=== PATIENT | male | born 1955 | race Caucasian/White ===

== ENCOUNTER → 2017-04-07 | Outpatient (CLI) | payer OTHER ==
[~2017-04-07] MED LIST: ACET500 PO; ALBU90OI; CYAN1000 PO; CYAN500 PO; DOCU100 PO; DRON2.5 PO; FIBE4P PO; Ferrousul325 MG; GABA300 PO; HYDMOR2 PO; LAVAP17G PO; LEVO750 PO; MAGOXI400; MAGOXI400 PO; METO10SY PO; METO25ER PO; METO5A PO; MIRT15 PO; OMEP20ER PO; ONDA4ODT MM; OXYC10ER PO; OXYC10TA19 PO; OXYC5 PO; PANT40 PO; RXHYDMOR2 PO; Roxicodone5 MG PO; SENN187 PO; SERT25 PO; TRAMADOL HCL E100 M2; VITAMIN B-121000 MCG; WARF2 PO; XARELTO10 MG
[2017-04-07 16:17] LABS: Source, Urine Clean Catch
[2017-04-07 18:18] LABS: Bilirubin, Urine Neg (Neg); Blood, Urine Neg (Neg); Glucose Qualitative, Urine 1+ (Neg); Ketones, Urine Neg (Neg); Leukocyte Esterase, Urine 1+ (Neg); Nitrite, Urine Neg (Neg); Protein, Urine Neg (Neg); Urobilinogen, Urine NORM (Normal)
[2017-04-07 18:30] LABS: Appearance, Urine Clear (Clear); Bacteria Few /hpf; Color, Urine Yellow (P-Yellow); Red Blood Cells, Urine 0-2 /hpf (0-2); Squamous Epithelial Cells Not Seen /hpf (Few)
== END | disposition home or self-care (01) ==
LOC: LAB 16:16
PROVIDERS: Internal Medicine
DX: R35.1 Nocturia (principal)
CPT/HCPCS: 81001; 87086

== ENCOUNTER → 2017-12-05 | Outpatient (CLI) | payer OTHER ==
[~2017-12-05] MED LIST changes: -ALBU90OI; -Ferrousul325 MG; -MAGOXI400; -TRAMADOL HCL E100 M2; -VITAMIN B-121000 MCG; -XARELTO10 MG
== END | disposition home or self-care (01) ==
LOC: LAB 08:15 → LAB SHORT 08:15
PROVIDERS: Internal Medicine
DX: R10.11 Right upper quadrant pain (principal); R19.7 Diarrhea, unspecified
CPT/HCPCS: 87015; 87045; 87046; 87177; 87205; 87209; 87328; 87329; 87493; 87899

== ENCOUNTER 2018-08-24 10:27 | Day surgery (SDC) | payer OTHER ==
[~2018-08-24] VITALS: Ht 175.3 cm; Wt 64.6 kg
[~2018-08-24 10:27] MED LIST changes: +ALBU90OI INH; +Ferrous Sulfat325 M2 PO; +Ferrousul325 MG; +MAGOXI400; +SERT50 PO; +TAMS.4ER PO; +TRAMADOL HCL E100 M2; +TRAZ100 PO; +VITAMIN B-121000 MCG; +XARELTO10 MG
[2018-08-24] MEDS ORDERED: XARELTO20 MG (11:24)
--- NOTE | 2018-08-24 14:56 | NUR ---
08/24/18 1456 Asmita Stanley LATE ENTRY---PRE OP BLOOD PRESSURE VERY LOW (SEE PRINTOUT). PATIENT WAS DIZZY WITH GETTING UP FROM CHAIR AND WALKING BACK WITH PRE OP PERSON. DR MELLO WAS CONSULTED AND SHE ORDERED FLUID BOLUS OF 500CC OF LR. THIS WAS DONE AND PATIENT EXPRESSED HE FELT BETTER. BP STILL LOW (SEE PRINTOUT) DR MELLO WAS ADVISED SHE WENT DOWN TALKED WITH PATIENT, ORDER ORTHOSTATIC VITALS. THIS WAS DONE AND THERE WAS NO CHANGE WITH POSITION CHANGES. GAVE OK TO GO AHEAD WITH SEDATION FOR COLONOSCOPY. SHE ORDERED TO KEEP FLUIDS WIDE OPEN AND START ANOTHER LITER OF LR WHEN FIRST ONE WAS FINISHED. DR BUSTILLO ADVISED AND AGREES
--- NOTE | 2018-08-24 14:58 | NUR ---
08/24/18 1458 Asmita Stanley LATE ENTRY----PATIENT STABLE AFTER PROCEDURE. BP FINALLY STAYING OVER 100 SYSTOLIC. PATIENT ABLE TO DRESS AND WHEN WALKING TO THE BATHROOM HE STATED HE STILL FELT JUST A LITTLE OFF BALANCE BUT TELLS ME IT WAS MUCH BETTER THAN BEFORE HIS PROCEDURE. PATIENT WALKED TO CAR AND WAS ABLE TO GET INTO CAR WITH NO PROBLEMS. PATIENT WAS DISCHARGED IN STABLE CONDITION
== END 2018-08-24 12:55 | disposition home or self-care (01) ==
LOC: ORSCSDS 10:27
PROVIDERS: Internal Medicine Gastroenterology
PROC: 0DBK8ZX Excision of Ascending Colon, Via Natural or Artificial Opening Endoscopic, Diagnostic (ICD-10-PCS; principal; 2018-08-24 11:45)
PROC: 0DBL8ZX Excision of Transverse Colon, Via Natural or Artificial Opening Endoscopic, Diagnostic (ICD-10-PCS; principal; 2018-08-24 11:45)
DX: Z86.010 Personal history of colon polyps (principal); D12.2 Benign neoplasm of ascending colon; D12.3 Benign neoplasm of transverse colon; K57.30 Diverticulosis of large intestine without perforation or abscess without bleeding; K64.8 Other hemorrhoids; Z85.01 Personal history of malignant neoplasm of esophagus; K21.9 Gastro-esophageal reflux disease without esophagitis; F17.210 Nicotine dependence, cigarettes, uncomplicated; Z79.899 Other long term (current) drug therapy
CPT/HCPCS: 88305; J2250; J2704; J7120

== ENCOUNTER 2020-07-04 13:19 | Day surgery (SDC) | payer OTHER ==
[~2020-07-04] VITALS: Ht 175.3 cm; Wt 48.8 kg
== END 2020-07-04 17:15 | disposition home or self-care (01) ==
LOC: ORSCSDS 13:19
PROC: 0DHA4UZ Insertion of Feeding Device into Jejunum, Percutaneous Endoscopic Approach (ICD-10-PCS; principal; 2020-07-04)
DX: R62.7 Adult failure to thrive (principal); Z85.01 Personal history of malignant neoplasm of esophagus; J44.9 Chronic obstructive pulmonary disease, unspecified; E78.5 Hyperlipidemia, unspecified; R73.9 Hyperglycemia, unspecified; Z79.899 Other long term (current) drug therapy; F17.210 Nicotine dependence, cigarettes, uncomplicated; Z79.01 Long term (current) use of anticoagulants
CPT/HCPCS: C1729; J0690; J2001; J2370; J2405; J2704; J3010

== ENCOUNTER 2020-07-12 16:09 | Inpatient (IN) | payer OTHER ==
[~2020-07-12] VITALS: Ht 175.3 cm; Wt 47.3 kg
[~2020-07-12 16:09] MED LIST changes: -CYAN1000 PO; +MIRT15 PT; +Vitamin B-121000 MCG PT; +XARELTO20 MG PT
[2020-07-12 16:42] LABS: BASOPHILS ABSOLUTE AUTO 0.02 K/mm3 (0.00-0.23); BASOPHILS PERCENT AUTO 0 % (0-2); EOSINOPHILS ABSOLUTE AUTO 0.09 K/mm3 (0.00-0.68); EOSINOPHILS PERCENT AUTO 1 % (0-6); Hematocrit 37.8 % (37.0-53.0); Hemoglobin 13.4 g/dL (13.5-17.5); IMMATURE GRAN ABSOLUTE AUTO 0.06 K/mm3 (0.00-0.10); IMMATURE GRAN PERCENT AUTO 1 % (0-1); LYMPHOCYTES ABSOLUTE AUTO 0.81 K/mm3 (0.84-5.20); LYMPHOCYTES PERCENT AUTO 7 % (21-46); MONOCYTES ABSOLUTE AUTO 0.97 K/mm3 (0.16-1.47); MONOCYTES PERCENT AUTO 9 % (4-13); Mean Corpuscular HGB 35.7 pg (26.0-34.0); Mean Corpuscular HGB Conc 35.4 g/dL (31.5-36.5); Mean Corpuscular Volume 101 fL (80-100); Mean Platelet Volume 10.6 fL (9.1-12.4); NEUTROPHILS ABSOLUTE AUTO 9.27 K/mm3 (1.96-9.15); NEUTROPHILS PERCENT AUTO 83 % (41-73); Platelet Count 222 K/mm3 (150-400); RDW Coefficient Variation 11.6 % (11.7-14.2); RDW Standard Deviation 42.4 fL (35.1-46.3); Red Blood Cell Count 3.75 M/mm3 (4.30-5.90); White Blood Cell Count 11.22 K/mm3 (4.00-11.30)
[2020-07-12 17:00] LABS: Alanine Aminotransfer (ALT/SGP 11 U/L (12-78); Albumin, Blood 1.9 g/dL (3.4-5.0); Albumin/Globulin Ratio 0.4 (0.8-1.8); Alk Phos 131 U/L (50-136); Anion Gap 7 mmol/L (6-16); Aspartate Aminotrans (AST/SGOT 17 U/L (12-37); Bilirubin, Total 0.7 mg/dL (0.1-1.0); Blood Urea Nitrogen 16 mg/dL (8-24); Bun/Creatinine Ratio 35.6 (12.0-20.0); CO2, Blood 25 mmol/L (21-32); Calcium, Blood 8.4 mg/dL (8.5-10.1); Chloride, Blood 104 mmol/L (98-108); Creatinine, Blood 0.45 mg/dL (0.60-1.20); Globulin, Blood 4.8 g/dL (2.2-4.0); Glomerular Filtration Rate >60 (60-); Glucose, Blood 120 mg/dL (70-99); Potassium, Blood 3.8 mmol/L (3.5-5.5); Sodium, Blood 136 mmol/L (136-145); Total Protein, Blood 6.7 g/dL (6.4-8.2); Troponin I <0.015 ng/mL (0.000-0.040)
[2020-07-12 17:31] LABS: Influenza A, PCR NEGATIVE (NEGATIVE); Influenza B, PCR NEGATIVE (NEGATIVE); Resp Syncytial Virus, PCR NEGATIVE (NEGATIVE); SARS-Cov-2 (COVID-19) PCR, MMC NEGATIVE (NEGATIVE)
[2020-07-12] MEDS ORDERED: ASCO500 PT (18:32)
[2020-07-12] MEDS ORDERED: VITAMIN D5000 UNIT PT (18:33)
[2020-07-12] MEDS ORDERED: ALFU10 PT (18:35)
[2020-07-12] MEDS ORDERED: FERROUS SULFAT325 M3 PT (18:36)
[2020-07-12] MEDS ORDERED: ZOLP10 PT (18:37)
[2020-07-12] MEDS ORDERED: Seroquel Xr50 MG PO (18:37)
[2020-07-12] MEDS ORDERED: PROM25 PO (18:38)
[2020-07-12] MEDS ORDERED: Percocet 5-3251 EACH PO (18:38)
[2020-07-12] MEDS ORDERED: HYDR1TAB94 PO (18:38)
[2020-07-12] MEDS ORDERED: QUETIAPINE FUMA50 M5 PT (18:45)
[2020-07-12] MEDS ORDERED: SERT100 PT (18:45)
--- NOTE | 2020-07-13 06:29 | NUR ---
shift summary pt rested well thorugh night. alert and oriented, able to make needs known. cooperative with plan of care. thoravent in place on l chest wall. sats >90% on 5lnc via oxymizer. tele nsr. no skin issues. minimal pain, just soreness from thoravent placement. jtube site c/d/i. npo. repeat cxr - pending. will need tube feedings per . vss. call light wtihin reach, bed in lowest posiion. will continue to monitor.
--- NOTE | 2020-07-13 19:30 | NUR ---
SHIFT SUMMARY PATIENT IS ALERT AND ORIENTED, COOPERATIVE WITH CARE. VSS, PATIENT TITRATED DOWN TO 3.5 L O2 VIA NASAL CANNULA MAINTAINING O2 SATS IN LOW 90S. PATIENT COMPLAINS OF L CHEST WALL PAIN WITH INSPIRATION AND L BACK PAIN. PAIN MEDICATIONS ADMINISTERED PER EMAR, PATIENT ASSISTED WITH REPOSITIONING T/O SHIFT. DR. SUERO SAW PATIENT AT BEDSIDE AND EVALUATED STATUS OF THORA-VENT, SEAL IS PATENT AND DR. SUERO STATED FLUID PRESENT IN THORA-VENT WAS ACCEPTABLE. PLAN IS FOR THORA-VENT REMOVAL TOMORROW. TUBE FEED STARTED THIS SHIFT PER ORDERS, NO RESIDUAL NOTED. PATIENT RESTING WITH HOB AT 45+ DEGREE ANGLE. WAS ABLE TO STAND MOMENTARILY WHEN WORKING WITH PHYSICAL THERAPY TODAY, OTHERWISE RESTING IN BED. J-TUBE IN PLACE, SKIN CARE PROVIDED AROUND J-TUBE SITE, DRESSING PLACED FOR SKIN PROTECTION. PATIENT INSTRUCTED IN USE OF FLUTTER VALVE BY THIS RN, PATIENT OBSERVED USING T/O SHIFT. SPEECH THERAPY TO EVALUATE TOMORROW.
--- NOTE | 2020-07-13 22:22 | NUR ---
ASSUMED CARE OF PATIENT AT APPROXIMATELY 1905 FROM FORTION Gambino RN. PATIENT ALERT AND ORIENTED X4; SLOW TO RESPOND AT TIMES. PATIENT WEAK; ASSISTS WITH TURNS IN BED; USES URINAL IN BED. PATIENT REPORTS BACK PAIN FROM BED; REPOSISTIONED; K-PAD GIVEN. AFIB ON TELE; OXYGEN SATURATION ABOVE 90% ON 2LPM VIA NC. PATIENT HAS TUBE FEEDING TO G-TUBE AT 25ML/HR. THORAVENT IN PLACE TO LEFT CHEST WITH FLUID PRESENT. PATIENT NPO UNTIL ST SEES PATIENT IN AM; ORAL CARE PROVIDED. PIV X2 S/L. PATIENT CURRENTLY RESTING IN BED; CALL LIGHT IN REACH; BED IN LOWEST POSISTION; BED ALARM ON
[2020-07-14 04:47] LABS: BASOPHILS ABSOLUTE AUTO 0.02 K/mm3 (0.00-0.23); BASOPHILS PERCENT AUTO 0 % (0-2); EOSINOPHILS ABSOLUTE AUTO 0.23 K/mm3 (0.00-0.68); EOSINOPHILS PERCENT AUTO 2 % (0-6); Hematocrit 31.4 % (37.0-53.0); Hemoglobin 10.9 g/dL (13.5-17.5); IMMATURE GRAN ABSOLUTE AUTO 0.07 K/mm3 (0.00-0.10); IMMATURE GRAN PERCENT AUTO 1 % (0-1); LYMPHOCYTES ABSOLUTE AUTO 0.44 K/mm3 (0.84-5.20); LYMPHOCYTES PERCENT AUTO 4 % (21-46); MONOCYTES ABSOLUTE AUTO 0.92 K/mm3 (0.16-1.47); MONOCYTES PERCENT AUTO 7 % (4-13); Mean Corpuscular HGB 35.3 pg (26.0-34.0); Mean Corpuscular HGB Conc 34.7 g/dL (31.5-36.5); Mean Corpuscular Volume 102 fL (80-100); Mean Platelet Volume 10.6 fL (9.1-12.4); NEUTROPHILS ABSOLUTE AUTO 10.76 K/mm3 (1.96-9.15); NEUTROPHILS PERCENT AUTO 87 % (41-73); Platelet Count 206 K/mm3 (150-400); RDW Coefficient Variation 11.7 % (11.7-14.2); RDW Standard Deviation 43.8 fL (35.1-46.3); Red Blood Cell Count 3.09 M/mm3 (4.30-5.90); White Blood Cell Count 12.44 K/mm3 (4.00-11.30)
[2020-07-14 05:05] LABS: Alanine Aminotransfer (ALT/SGP 9 U/L (12-78); Albumin, Blood 1.6 g/dL (3.4-5.0); Albumin/Globulin Ratio 0.4 (0.8-1.8); Alk Phos 103 U/L (50-136); Anion Gap 6 mmol/L (6-16); Aspartate Aminotrans (AST/SGOT 10 U/L (12-37); Bilirubin, Total 0.5 mg/dL (0.1-1.0); Blood Urea Nitrogen 11 mg/dL (8-24); Bun/Creatinine Ratio 23.6 (12.0-20.0); CO2, Blood 26 mmol/L (21-32); Calcium, Blood 7.7 mg/dL (8.5-10.1); Chloride, Blood 105 mmol/L (98-108); Creatinine, Blood 0.47 mg/dL (0.60-1.20); Glomerular Filtration Rate >60 (60-); Glucose, Blood 130 mg/dL (70-99); Magnesium, Blood 1.9 mg/dL (1.6-2.4); Phosphorus, Blood 2.9 mg/dL (2.5-4.9); Potassium, Blood 3.2 mmol/L (3.5-5.5); Sodium, Blood 137 mmol/L (136-145); Total Protein, Blood 5.6 g/dL (6.4-8.2)
--- NOTE | 2020-07-14 06:45 | NUR ---
PATIENT SLEPT ABOUT SEVEN HOURS LAST NIGHT; PAIN IN BED; K-PAD, PAIN MEDS AND EGG CRATE FOAM TO BED. VSS. NO OTHER ACUTE CHANGES TO REPORT; TF TO 35ML/HR.
--- NOTE | 2020-07-14 18:19 | NUR ---
SHIFT SUMMARY NO ACUTE EVENTS THIS SHIFT, VSS. ALERT AND ORIENTED, COOPERATIVE WITH CARE. PATIENT MAINTAINING O2 SATS IN 90S AND TITRATED DOWN TO 1.5 L VIA NASAL CANNULA AND TOLERATING WELL. PATIENT COMPLAINED OF L CHEST/BACK PAIN, MORPHINE GIVEN ONCE THIS SHIFT PER EMAR. PATIENT STATED THAT HIS CHEST PAIN IS DECREASED OVERALL BETWEEN YESTERDAY AND TODAY. PATIENT CONTINUES TO HAVE PRODUCTIVE COUGH, USING FLUTTER VALVE THIS SHIFT. TUBE FEEDS INCREASED AND NOW RUNNING AT GOAL RATE OF 40 ML/HR WITH FLUSH OF [address] SUERO CAME TO BEDSIDE AND REMOVED THORAVENT, DRESSING IN PLACE.
--- NOTE | 2020-07-14 21:24 | NUR ---
ASSUMED CARE OF PATIENT AT APPROXIMATELY 1905 FROM FORTINO Gambino RN. PATIENT ALERT AND ORIENTED X4; SLOW TO RESPOND AT TIMES. PATIENT WEAK; ASSISTS WITH TURNS IN BED; USES URINAL IN BED. PATIENT REPORTS BACK PAIN FROM BED; REPOSISTIONED; K-PAD GIVEN; MEDICATED PER EMAR. SR ON TELE; OXYGEN SATURATION ABOVE 90% ON 1.5LPM VIA NC. PATIENT HAS TUBE FEEDING TO G-TUBE AT 40ML/HR. NPO; Q4 ORAL CARE WITH SUCTION SWABS. PIV X2 S/L. PATIENT CURRENTLY RESTING IN BED; CALL LIGHT IN REACH; BED IN LOWEST POSISTION; BED ALARM ON
[2020-07-15 05:18] LABS: Hematocrit 31.4 % (37.0-53.0); Hemoglobin 10.8 g/dL (13.5-17.5); Mean Corpuscular HGB 34.8 pg (26.0-34.0); Mean Corpuscular HGB Conc 34.4 g/dL (31.5-36.5); Mean Corpuscular Volume 101 fL (80-100); Mean Platelet Volume 11.2 fL (9.1-12.4); Platelet Count 217 K/mm3 (150-400); RDW Coefficient Variation 11.7 % (11.7-14.2); RDW Standard Deviation 43.7 fL (35.1-46.3); White Blood Cell Count 10.12 K/mm3 (4.00-11.30)
--- NOTE | 2020-07-15 05:23 | NUR ---
CODE SKAGGS; AT APPROXIMATELY 0515 LAB CALLED DISTRIBUTION DISPATCHER TO HELP WITH LAB DRAW; PATIENT SWINGING AT LAB AND RESISTING LAB DRAW. PATIENT PINCHED STAFF THEN JUMPED OUT OF BED HEAD FIRST "I GOTTA PEE" AND GRABBED CHARGE NURSE CHEST. PATIENT STARTED URINATING INTO TRASHCAN AND ALL OVER FLOOR; PALE AND REFUSING OXYGEN STILL; SWATTING WHEN STAFF ATTEMPTED TO PLACE NASAL CANNULA. SECURITY AND NURSING MONITOR TECHNICIAN RESPONDED. DR. REED CALLED; ORDERS RECIEVED.
[2020-07-15 06:02] LABS: Albumin, Blood 1.6 g/dL (3.4-5.0); Anion Gap 2 mmol/L (6-16); Blood Urea Nitrogen 10 mg/dL (8-24); Bun/Creatinine Ratio 22.8 (12.0-20.0); CO2, Blood 29 mmol/L (21-32); Calcium, Blood 7.7 mg/dL (8.5-10.1); Chloride, Blood 106 mmol/L (98-108); Creatinine, Blood 0.44 mg/dL (0.60-1.20); Glomerular Filtration Rate >60 (60-); Glucose, Blood 135 mg/dL (70-99); Magnesium, Blood 1.9 mg/dL (1.6-2.4); Phosphorus, Blood 2.4 mg/dL (2.5-4.9); Potassium, Blood 3.5 mmol/L (3.5-5.5); Sodium, Blood 137 mmol/L (136-145); Vancomycin, Trough 8.1 ug/mL (5.0-10.0)
--- NOTE | 2020-07-15 06:30 | NUR ---
PATIENT SLEPT ABOUT EIGHT HOURS LAST NIGHT; BACK PAIN WOKE PATIENT AT TIMES. VSS. PATIENT REPORTS LAST NIGHT THAT HE IS NOT READY TO GO HOME.
--- NOTE | 2020-07-15 11:54 | NUR ---
TRANSFER TO MEDICAL FLOOR PT WAS TRANSFERRED TO MEDICAL FLOOR. REPORT GIVEN TO LISA CATHERINE. PT WAS TRANSFERRED OFF OF PCU AT APPROXIMATELY 1145. PT WAS ON TELE UPON TRANSFER, 1.5L OF O2, IV RUNNING WITH KVO AND ZOSYN AND J-TUBE FEEDING RUNNING AT 40. PT SPOKE WITH ELECTRICAL REPAIRER THIS MORNING AND THE PLAN IS TO FINISH THE CURRENT FEEDING THEN STOP FEEDINGS UNTIL THE EVENING AND RUN CONTINUOUSLY THROUGH THE NIGHT. PT WAS TRANSFERRED IN THE BED ACCOMPANIED BY BOUBACAR AND LISA ROY. PT WAS TAKEN WITH ALL PERSONAL BELONGINGS.
--- NOTE | 2020-07-15 17:22 | NUR ---
SHIFT SUMMARY PATIENT TRANSFERED FROM PCU AROUND LUNCH TIME. PATIENT REMAINS ON TUBE FEEDING, STRICT NPO. PATIENT ALERT AND ORIENTED THIS SHIFT. PATIENT USES URINAL APPROPRIATELY. TUBE FEEDING STOPPED THROUGH THE AFTERNOON, ORDERS TO START AT 1800 TO RUN THROUGH 0600. PATIENT MEDICATED 1X THIS SHIFT FOR PAIN. PATIENT'S SPOUSE IN THE ROOM VISITING THIS AFTERNOON. PATIENT CURRENTLY SITTING UP IN BED WATCHING TELEVISION, SPOUSE AT BEDSIDE.
--- NOTE | 2020-07-15 20:51 | NUR ---
PATIENT EXTREMELY NAUSEATED WHEN THIS RN ENTERED THE ROOM WITH HS MEDS AND IV MORPHINE. HE HAD HIS LEGS PARTIALLY OVER THE LEFT SIDE OF THE BED AND WAS DOWN IN THE BED TO ABOUT 10%. FEET PLACED BACK IN BED AND ENGINEERING SUPPLIES SALES ASSISTED TO BRING PATIENT BACK UP IN BED AND ELEVATE HIM BACK TO 30%. TUBE FEED TEMPORARILY STOPPED AND ZOFRAN 4MG IV GIVEN FOR RELIEF. WILL HOLD HS MEDS FOR 20-30 MINUTES UNTIL PATIENT NO LONGER DRY HEAVING. IN ADDITION, PATIENT WAS SCRATCHING AT J TUBE SITE, AND AT THIS TIME, DRESSING IS NOW SATURATED WITH SERROUS FLUID. PATIENT IS EXTREMELY ANXIOUS AND UNABLE TO CALM DOWN. WILL CONTACT HOSPITALIST WITH UPDATE.
[2020-07-16 04:38] LABS: BASOPHILS ABSOLUTE AUTO 0.03 K/mm3 (0.00-0.23); BASOPHILS PERCENT AUTO 0 % (0-2); EOSINOPHILS ABSOLUTE AUTO 0.13 K/mm3 (0.00-0.68); EOSINOPHILS PERCENT AUTO 1 % (0-6); Hematocrit 30.8 % (37.0-53.0); Hemoglobin 10.5 g/dL (13.5-17.5); IMMATURE GRAN ABSOLUTE AUTO 0.06 K/mm3 (0.00-0.10); IMMATURE GRAN PERCENT AUTO 1 % (0-1); LYMPHOCYTES ABSOLUTE AUTO 0.59 K/mm3 (0.84-5.20); LYMPHOCYTES PERCENT AUTO 5 % (21-46); MONOCYTES ABSOLUTE AUTO 0.83 K/mm3 (0.16-1.47); MONOCYTES PERCENT AUTO 7 % (4-13); Mean Corpuscular HGB 34.8 pg (26.0-34.0); Mean Corpuscular HGB Conc 34.1 g/dL (31.5-36.5); Mean Corpuscular Volume 102 fL (80-100); NEUTROPHILS ABSOLUTE AUTO 9.82 K/mm3 (1.96-9.15); NEUTROPHILS PERCENT AUTO 86 % (41-73); Platelet Count 248 K/mm3 (150-400); RDW Coefficient Variation 11.6 % (11.7-14.2); RDW Standard Deviation 43.7 fL (35.1-46.3); Red Blood Cell Count 3.02 M/mm3 (4.30-5.90); White Blood Cell Count 11.46 K/mm3 (4.00-11.30)
[2020-07-16 04:58] LABS: Anion Gap 2 mmol/L (6-16); Blood Urea Nitrogen 14 mg/dL (8-24); Bun/Creatinine Ratio 26.8 (12.0-20.0); CO2, Blood 27 mmol/L (21-32); Calcium, Blood 7.7 mg/dL (8.5-10.1); Chloride, Blood 106 mmol/L (98-108); Creatinine, Blood 0.52 mg/dL (0.60-1.20); Glomerular Filtration Rate >60 (60-); Glucose, Blood 137 mg/dL (70-99); Phosphorus, Blood 2.2 mg/dL (2.5-4.9); Potassium, Blood 4.1 mmol/L (3.5-5.5); Sodium, Blood 135 mmol/L (136-145)
--- NOTE | 2020-07-16 06:45 | NUR ---
ALDEN HAD NO FURTHER NAUSEA OR EXTREME ANXIETY ISSUES AFTER RECEIVING THE SINGLE DOSE OF IV ATIVAN. AFTER PATIENT WAS ABLE TO RELAX AND WAS ABLE TO REMAIN STILL, J TUBE DRESSING WAS CHANGED TWO GAUZE SPONGES WERE SATURATED WITH WHAT APPEARED TO BE A COMBINATION OF BILE AND TUBE FEED. NO RESIDUALS NOTED OVERNIGHT. PATIENT TOLERATED TUBE FEED AT 80ML/HR WITHOUT DIFFICULTY AFTER EPISODE IN THE EARLY EVENING. FREQUENT CHECKS TO ASSESS FOR REPOSITIONING NEED RECOMMENDED. ROBERT COLE HAS ASKED THAT THE HOSPITALIST ROUNDING ON HIM PLEASE CALL HER OUR VISITING HOURS MAKE IT EXTREMELY DIFFICULT FOR FAMILY TO STAY INFORMED THEIR STATUS.HER NUMBER IS: [phone]
[2020-07-16] MEDS ORDERED: ALBU90OI INH (09:25)
[2020-07-16] MEDS ORDERED: Cardura1 MG PT (09:26)
[2020-07-16] MEDS ORDERED: Norco 5-325 Ta1 EACH PT (09:30)
[2020-07-16] MEDS ORDERED: LEVO750 PT (09:31)
[2020-07-16] MEDS ORDERED: ONDA4ODT SL (09:31)
[2020-07-16] MEDS ORDERED: PROBIOTIC PT (09:37)
[2020-07-16] MEDS ORDERED: CRAN PT (09:37)
[2020-07-16] MEDS ORDERED: VITC PT (09:37)
[2020-07-16] MEDS ORDERED: K-Phos Origina500 MG PT (09:39)
--- NOTE | 2020-07-16 16:14 | NUR ---
Spiritual care visit conducted. Patient is sittig up in bed and alert. 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 Patient talks about his [employer] and how [facility] from [facility] prayed for him on the phone. Amira, patient's spouse is present during my visit. They explain about how the weight of the medical issues are pulling at them but the y are trying to stay positive. I normalize their experience and provide therapeutic listening. I will continue to remain available to patient and family.
--- NOTE | 2020-07-16 18:08 | NUR ---
SHIFT SUMMARY PATIENT ALERT AND ORIENTED THIS SHIFT. PATIENT REMAINS WEAK, UP 1X TO THE BEDSIDE COMODE. PATIENT REMAINS IN BED OTHERWISE. PATIENT REMAINS NPO, RECEIVING MEDICATIONS VIA IV AND J-TUBE. PATIENT SITTING UP IN BED THIS AFTERNOON, STATES FEELING BETTER TODAY THAN YESTERDAY. PATIENT'S IN THE ROOM THIS AFTERNOON. PATIENT RECEIVING CONTINUOUS TUBE FEEDING. PATIENT MEDICATED 1X FOR PAIN THIS AFTERNOON WITH NORCO PER EMAR. PATIENT STATES PAIN LEVEL IS ACCEPTABLE AFTER ADMINISTRATION. PATIENT CURRENTLY SITTING UP IN BED TALKING ON THE TELEPHONE.
--- NOTE | 2020-07-16 18:15 | NUR ---
Met with pt this evening to discuss his current hospitalization. He is pleasantly forgetful. His memory is fair/poor. He has lost a significant amount of weight over the past few months. He states this is because he had a new set of dentures that didn't fit correctly, and then he just lost his appetite altogether. This is the 2nd time this has happened since he has been in remission from his cancer. He came into the hospital because he was still losing weight and feeling sick to his stomach. So a j tub was placed again to see if pt can gain weight. So far, he hasn't been able to tolerate his tube feeding higher than 40/hour, but pt is in remission from cancer at this time. Depending on how the visit goes tomoroow, may discuss code status.
--- NOTE | 2020-07-17 04:55 | NUR ---
HAT AND CAP PARTS CUTTER HAND SUMMARY PT AAOX4 AND PLEASANT. HAS BEEN USING URINAL IN BED. CONTINUOUS TUBE FEEDING RATE INCREASED TO GOAL RATE OF 40 ML/HR FROM 30 ML/HR IN 5 ML INCREMENTS EVERY 2 HOURS. PT DENIES ANY BLOATING, NAUSEA, OR FEELING FULL. PT STILL WEAK AND NERVOUS REGARDING DISCHARGE. VSS, WILL CONTINUE TO MONITOR.
[2020-07-17 05:13] LABS: Hematocrit 32.1 % (37.0-53.0); Hemoglobin 10.9 g/dL (13.5-17.5); Mean Corpuscular HGB 34.8 pg (26.0-34.0); Mean Corpuscular Volume 103 fL (80-100); Mean Platelet Volume 11.3 fL (9.1-12.4); Platelet Count 262 K/mm3 (150-400); RDW Coefficient Variation 11.8 % (11.7-14.2); Red Blood Cell Count 3.13 M/mm3 (4.30-5.90); White Blood Cell Count 8.17 K/mm3 (4.00-11.30)
[2020-07-17 05:36] LABS: Anion Gap 3 mmol/L (6-16); Blood Urea Nitrogen 10 mg/dL (8-24); Bun/Creatinine Ratio 18.9 (12.0-20.0); CO2, Blood 29 mmol/L (21-32); Calcium, Blood 8.1 mg/dL (8.5-10.1); Chloride, Blood 103 mmol/L (98-108); Creatinine, Blood 0.53 mg/dL (0.60-1.20); Glomerular Filtration Rate >60 (60-); Glucose, Blood 100 mg/dL (70-99); Phosphorus, Blood 4.5 mg/dL (2.5-4.9); Potassium, Blood 4.3 mmol/L (3.5-5.5); Sodium, Blood 135 mmol/L (136-145); Vancomycin, Trough 2.6 ug/mL (5.0-10.0)
--- NOTE | 2020-07-17 13:15 | NUR ---
Spiritual care visit conducted. Patient is sitting up in bed and alert. Patient tells me that he received a positive report from his doctor today and will most likely go home tomorrow. 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 Patient is adaquately supported from his ed community. I reinforce helpful attitudes and practices and provide therapeutic listening and prayer. Patient responds well and shows signs of an elevated mood. He voices appreciation and states that he listened to every word of the prayer and was very encouraged by it.
--- NOTE | 2020-07-17 17:34 | NUR ---
SHIFT SUMMARY PT A&Ox4. PLEASANT AND COOPERATIVE WITH CARE. PT REPORTS GENERAL WEAKNESS AND FEELING UNWELL TODAY. PT/OT WORKING WITH PATIENT. PT REPORTS PAIN AND NAUSEA x2 TODAY- MEDICATED PER EMAR. J TUBE CONNECTED TO CONTINOUS FEEDS AT 40ML/HR WITH 200ML FLUSHES. PER REPORT WRITER, ORDERS ADJUSTED TO INCREASE FEEDING TO 80ML/HR STARTING TODAY AT 1800. PER PATIENT AND HIS , THEY DO NOT WANT TO INCREASE THE FEEDINGS AT THIS TIME. THEY REPORTED PREVIOUS INCREASE IN FEEDING CAUSED TOO MUCH STOMACH UPSET. CURRENT PLAN IS TO DC TO HOME TOMORROW. PER CARDIAC TECHNICIAN, TELE RUNNING AT SR 89. PT ON 2L O2 VIA NC TODAY WITHOUT DIFFICULTY BREATHING. VITALS REVIEWED. PT IN FOR VISIT, AND UPDATED ON PLAN OF CARE. PT CURRENTLY RESTING IN BED WITH CALL LIGHT IN REACH. DENIES ANY NEEDS AT THIS TIME.
[2020-07-18 05:10] LABS: BASOPHILS ABSOLUTE AUTO 0.02 K/mm3 (0.00-0.23); BASOPHILS PERCENT AUTO 0 % (0-2); EOSINOPHILS ABSOLUTE AUTO 0.16 K/mm3 (0.00-0.68); EOSINOPHILS PERCENT AUTO 2 % (0-6); IMMATURE GRAN PERCENT AUTO 1 % (0-1); LYMPHOCYTES ABSOLUTE AUTO 0.48 K/mm3 (0.84-5.20); LYMPHOCYTES PERCENT AUTO 5 % (21-46); MONOCYTES ABSOLUTE AUTO 1.14 K/mm3 (0.16-1.47); MONOCYTES PERCENT AUTO 13 % (4-13); Mean Corpuscular HGB Conc 34.4 g/dL (31.5-36.5); Mean Corpuscular Volume 102 fL (80-100); Mean Platelet Volume 11.3 fL (9.1-12.4); NEUTROPHILS PERCENT AUTO 79 % (41-73); Platelet Count 294 K/mm3 (150-400); RDW Coefficient Variation 11.7 % (11.7-14.2); RDW Standard Deviation 43.8 fL (35.1-46.3); Red Blood Cell Count 3.14 M/mm3 (4.30-5.90)
--- NOTE | 2020-07-18 05:28 | NUR ---
SERVICE MEMBER SUMMARY NO ACUTE CHANGES THIS SHIFT. PT AAOX4 AND PLEASANT. USES URINAL AT BEDSIDE. CONTINUES ON CONTINUOUS TUBE FEEDS AT 40 ML/HR, STILL REFUSING TO HAVE RATE INCREASED BECAUSE HE IS SCARED OF BECOMING NAUSEAS/ANXIOUS. THIS RN SPOKE TO PT ABOUT TRYING TO INCREASE THE FEED RATE SLOWLY STARTING IN THE MORNING SO THAT HE CAN GET PROPER NUTRITION. PT SEEMED OPEN TO THE SUGGESTION. VSS, WILL CONTINUE TO MONITOR.
[2020-07-18 05:41] LABS: Alanine Aminotransfer (ALT/SGP 13 U/L (12-78); Albumin, Blood 1.8 g/dL (3.4-5.0); Albumin/Globulin Ratio 0.4 (0.8-1.8); Alk Phos 102 U/L (50-136); Anion Gap 6 mmol/L (6-16); Aspartate Aminotrans (AST/SGOT 12 U/L (12-37); Bilirubin, Total 0.4 mg/dL (0.1-1.0); Blood Urea Nitrogen 12 mg/dL (8-24); Bun/Creatinine Ratio 21.7 (12.0-20.0); CO2, Blood 28 mmol/L (21-32); Calcium, Blood 8.2 mg/dL (8.5-10.1); Chloride, Blood 100 mmol/L (98-108); Creatinine, Blood 0.55 mg/dL (0.60-1.20); Globulin, Blood 4.5 g/dL (2.2-4.0); Glomerular Filtration Rate >60 (60-); Glucose, Blood 128 mg/dL (70-99); Phosphorus, Blood 3.5 mg/dL (2.5-4.9); Potassium, Blood 3.8 mmol/L (3.5-5.5); Sodium, Blood 134 mmol/L (136-145); Total Protein, Blood 6.3 g/dL (6.4-8.2)
--- NOTE | 2020-07-18 13:51 | NUR ---
Spiritual care visit conducted. Patient is lying in bed and alert. Patient tells me that he is going home today and that he is excited to be in his own space yet nervous about having to come right back to the hospital. I provide therapeutic listening and a blessing. Patient shows signs of increased peace.
--- NOTE | 2020-07-18 15:16 | NUR ---
PATIENT DISCHARGED AT 1505 ON 07/18/20. THE PATIENT WAS HERE FOR DISCHARGE INSTRUCTIONS. THE IV WAS DC'D. TELE WAS DC'D. THE PATIENT WAS PUSHED OUT IN A WHEELCHAIR.
== END 2020-07-18 15:02 | disposition home health service (06) | DRG 871 ==
LOC: ER 16:09 → PCU 21:13 → MEDS 07-15 11:50
PROVIDERS: Emergency Medicine; Family Medicine; Internal Medicine Critical Care Medicine; Pharmacist; Physician Assistant; ADMIT Internal Medicine
PROC: 0W9B30Z Drainage of Left Pleural Cavity with Drainage Device, Percutaneous Approach (ICD-10-PCS; principal; 2020-07-12)
DX: A41.89 Other specified sepsis (principal); J18.9 Pneumonia, unspecified organism; J96.01 Acute respiratory failure with hypoxia; J93.9 Pneumothorax, unspecified; C15.9 Malignant neoplasm of esophagus, unspecified; R64 Cachexia; Z20.822 Contact with and (suspected) exposure to COVID-19; R62.7 Adult failure to thrive; J44.9 Chronic obstructive pulmonary disease, unspecified; Z86.718 Personal history of other venous thrombosis and embolism; Z93.4 Other artificial openings of gastrointestinal tract status; Z87.891 Personal history of nicotine dependence; Z79.01 Long term (current) use of anticoagulants
CPT/HCPCS: 0241U; 32551; 36415; 71045; 71260; 74176; 80048; 80053; 80069; 80202; 82947; 83605; 83735; 83880; 84100; 84443; 84484; 85025; 85027; 86140; 87040; 87070; 87077; 87186; 87205; 92526; 92610; 93005; 93010; 94760; 94761; 94762; 96365-59; 96375-59; 97110; 97162; 97165; 97530; 99285-25; A9270; A9270-GY; C9113; J1956; J2060; J2270; J2405; J2543; J3370; J7030; J7050; J7060; Q9967

== ENCOUNTER 2020-11-05 03:43 | Emergency (ER) | payer OTHER ==
[~2020-11-05] VITALS: Ht 172.7 cm; Wt 59.0 kg
[~2020-11-05 03:43] MED LIST changes: +ALFU10 PT; +ASCO500 PT; +CRAN PT; +Cardura1 MG PT; +FERROUS SULFAT325 M3 PT; +HYDR1TAB94 PO; +K-Phos Origina500 MG PT; +LEVO750 PT; +Norco 5-325 Ta1 EACH PT; +ONDA4ODT SL; +PROBIOTIC PT; +PROM25 PO; +Percocet 5-3251 EACH PO; +QUETIAPINE FUMA50 M5 PT; +SERT100 PT; +Seroquel Xr50 MG PO; +VITAMIN D5000 UNIT PT; +VITC PT; +ZOLP10 PT
== END 2020-11-05 06:30 | disposition home or self-care (01) ==
LOC: ER 03:43
DX: S93.601A Unspecified sprain of right foot, initial encounter (principal); K94.13 Enterostomy malfunction; F17.210 Nicotine dependence, cigarettes, uncomplicated; Z79.899 Other long term (current) drug therapy; Z79.01 Long term (current) use of anticoagulants; Z85.01 Personal history of malignant neoplasm of esophagus; Y83.3 Surgical operation with formation of external stoma as the cause of abnormal reaction of the patient, or of later complication, without mention of misadventure at the time of the procedure; W06.XXXA Fall from bed, initial encounter
CPT/HCPCS: 73630; 99283-25; A9270

== ENCOUNTER 2021-01-21 10:55 | Day surgery (SDC) | payer OTHER | END 2021-01-21 23:23 | disposition home or self-care (01) | LOC: WOUND 10:55 | DX: L27.9 Dermatitis due to unspecified substance taken internally (principal); K94.23 Gastrostomy malfunction; I10 Essential (primary) hypertension; F17.210 Nicotine dependence, cigarettes, uncomplicated | CPT/HCPCS: A9270; G0463 ==